=== PATIENT | male | born 1995 | race African-American/Black ===

== ENCOUNTER 2021-04-23 18:07 | Emergency (ER) | payer SELFPAY ==
[~2021-04-23] VITALS: Ht 180.3 cm; Wt 68.0 kg
[2021-04-23 18:17] VITALS: BP 142/85
== END 2021-04-23 21:15 | disposition left against medical advice (07) ==
LOC: ER 18:07
DX: Z53.21 Procedure and treatment not carried out due to patient leaving prior to being seen by health care provider (principal)

== ENCOUNTER 2023-04-29 13:37 | Emergency (ER) | payer MEDICAID ==
[~2023-04-29] VITALS: Ht 188 cm; Wt 77.0 kg
[2023-04-29 13:49] VITALS: BP 125/87; PULSE 60; RESP 18; TEMP 98.2; O2SAT 100
[2023-04-29] MEDS ORDERED: TETANUS, DIPHTHERIA, PERTUSSIS VAC/PF 0.5ML (>10YR OLD) IM ONE (14:30)
[2023-04-29] MEDS ORDERED: CEPH750C7 MT ×2 (14:59)
[2023-04-29] MEDS ORDERED: CEPH500C2 MT (15:06)
== END 2023-04-29 15:13 | disposition home or self-care (01) ==
LOC: ER 13:37
DX: S91.331A Puncture wound without foreign body, right foot, initial encounter (principal); W22.8XXA Striking against or struck by other objects, initial encounter; Y93.89 Activity, other specified; Y92.89 Other specified places as the place of occurrence of the external cause; Y99.8 Other external cause status
CPT/HCPCS: 73630; 90471; 90715; 99283